=== PATIENT | female | born 1965 | race Caucasian/White ===

== ENCOUNTER 2022-12-12 10:07 | Emergency (ER) | payer OTHER ==
[2022-12-12] MEDS ORDERED: Sodium Chloride 0.9% 1,000 ML IV ONE (10:22)
[2022-12-12] MEDS ORDERED: Ondansetron 4 MG/2 ML SDV IVPUSH ONE (10:22)
[2022-12-12] MEDS ORDERED: Ketorolac 30 MG/ML SDV IVPUSH ONE (10:22)
[2022-12-12 11:06] LABS: CARBON DIOXIDE,CO2 28.8 mmol/L (21.0-32.0); POTASSIUM,K 3.6 mmol/L (3.5-5.1)
[2022-12-12] MEDS ORDERED: Morphine 4 MG/ML Syringe IVPUSH ONE (11:06)
[2022-12-12] MEDS ORDERED: Promethazine 25 MG/ML SDV IM ONE (11:12)
[2022-12-12] MEDS ORDERED: Tamsulosin 0.4 MG Cap.ER PO ONE (12:41)
== END 2022-12-12 12:56 | disposition home or self-care (01) ==
LOC: MW.ED 10:07
DX: N13.2 Hydronephrosis with renal and ureteral calculous obstruction (principal); Z88.1 Allergy status to other antibiotic agents
CPT/HCPCS: 36415; 74176; 80053; 81003; 83690; 85025; 96361; 96372; 96374; 96375; 99284; A9270; J1885; J2405; J2550; J7030